=== PATIENT | female | born 1995 | race Caucasian/White ===

== ENCOUNTER 2024-07-27 19:08 | Emergency (ER) | payer SELFPAY ==
--- OUTSIDE RECORDS SUMMARY | 2024-07-27 19:11 | XMS_ITS | Continuity of Care Document ---
Author Organization [facility] Address [address] [place] [address] Phone Care Team Providers Care Senior Manufacturing Engineer Name Role Phone MD MANJULA, GREG Unavailable Unavailable Allergies, Adverse Reactions, Alerts Substance Reaction Status Criticality No Known Allergies Active No Inform ation Medications Medication Instructions Dosage Effective Dates (start - stop) Status Comments 28 mg iron-800 mcg tablet - Active Procedures Procedure Date COMPREHENSIVE DETAILED ULTRASOUND ECHO WITH M-MODE DOPPLER, ECHOCARDIOGRAPHY, 2022 COLOR FLOW VELOCITY MAPPING NEW PT, LOW VISIT Advance Directives Directive Yes / No Effective Date File Name No Information Encounters Encounter Description Practice Location Reason(s) For Visit Diagnoses Date Provider Providers Copied on Encounter NEW PT, LOW VISIT [facility], [address], [place], [place], [id number], [place] tel:[phone] [facility] Consult (chief complaint) Maternal care for (suspected) hereditary disease [facility] congenital malfor, deform and chromosomal abnormWeeks Gestation of MD MANJULA GREG. [address], [place], [place], [id number], [place]. tel:[phone] Referring Provider: THAD Cox, [address] [address], [place], [address]. tel:[phone] [facility], [address], [place], [place], [id number], [place] tel:[phone] [facility] No Information MD AYO SHERMAN III. [address] [address], [place], [place], [id number], [place]. tel:[phone] Family History Family Member Type Diagnosis Age At Onset Sister Problem Goldenhar Syndrome Mother Problem Cervical Cancer Brother Problem Autism Payers Payer name Insurance type Covered constitution party ID Authorraula shae(s) [facility] [id number] POS [id number] Social History Type Description Quantity Date Captured Comments Alcohol Use Details Unknown Caffeine Use Details Unknown Tobacco Use Status Current non-smoker Smoking Status Never smoker Non-Smoking Tobacco Use Details : No Details Available : No Details Available Sex Female Yes - Patient is currently Vital Signs Date / Time: Height Weight BMI Pulse Rate Blood Pressure Temperature Respiratory Rate Body Surface Area Head Circumference BMI percentile Pulse Ox Inhaled Ox 9:56 AM 64.00 in 69.853 kg (154.00 lbs) 26.4 3 kg/m eter (2) 92 /min 101/65 mm[Hg] 98.06 F 1.78 meter(2) Chief Complaint And Reason For Visit From encounter dated '08/31/2022 10:00'. Consult (chief complaint). Description: Today, I had the pleasure of seeing your patient, Cintia George, in our [place] office.Synopsis: She is a 27 y/o at 20 0/7 weeks gestation by LMP c/w first trimester ultrasound done at 10w5d with an CHACORTA of 01/18/2023. A consultation was requested for maternal history of VSD and sister with Golderhar syndrome. 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 Her sister has Goldenhar syndrome with malformation of the jaw and orbits. No other family members are affected. She completed NIPT which resulted as low risk. She has an ASCUS papand will plan for PP colpo. Ultrasound: Today's ultrasound showed a malone with cardiac activity, an anterior placenta, without evidence of placenta previa. There was normal amniotic fluid volume, biometry consistent with gestational age, and no structural abnormalities were identified. The ears appeared normal without extra tags or pits. The jaw and spine were also unremarkable. The echocardiogram was unremarkable. A separate report has been faxed to your office.Impression:1. Malone intrauterine at 20 0/7 weeks gestation. 2. Maternal history of ventricular septal defect. The patient had a VSD. The risk of VSD in the general population is around 1/200. The risk to this fetus higher when the mother has VSD (5-6/100). For this reason a echocardiogram was completed and was unremarkable. Small ASD, VSD, coarctation of the aorta, abnormalities of the coronary circulation and abnormalities of venous return may be missed on echo. 3. Sister with Goldenhar syndrome: this is most commonly sporadic. Findings on ultrasound can include micrognathia, malformed ears and spine. We did not note any abnormalities on today's scan. In the absence of other family members with the condition and normal ultrasound, reassurance was given. Recommendations:1. Rescan at [facility] was clinically indicated. 2. Colposcopy due to abnormal pap test. Thank you for the opportunity to participate in this patient's care and if you haveany questions concerning her please do not hesitate to contact me. History Of Present Illness Encounter Date Complaint History Of Prese nt Illness Consult Today, I had the pleasure of seeing your patient, Cintia George, in our [place] office.Synopsis: She is a 27 y/o at 20 0/7 weeks gestation by LMP c/w first trimester ultrasound done at 10w5d with an CHACORTA of 01/18/2023. A consultation was requested for maternal history of VSD and sister with Golderhar syndrome. 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 Her sister has Goldenhar syndrome with malformation of the jaw and orbits. No other family members are affected. She completed NIPT which resulted as low risk. She has an ASCUS pap and will plan for PP colpo. Ultrasound: Today's ultrasound showed a malone with cardiac activity, an anterior placenta, without evidence of placenta previa. There was normal amniotic fluid volume, biometry consistent with gestational age, and no structural abnormalities were identified. The ears appeared normal without extra tags or pits. The jaw and spine were also unremarkable. The echocardiogram was unremarkable. A separate report has been faxed to your office.Impression:1. Malone intrauterine at 20 0/7 weeks gestation. 2. Maternal history of ventricular septal defect. The patient had a VSD. The risk of VSD in the general population is around 1/200. The risk to this fetus higher when the mother has VSD (5-6/100). For this reason a echocardiogram was completed and was unremarkable. Small ASD, VSD, coarctation of the aorta, abnormalities of the coronary circulation and abnormalities of venous return may be missed on echo. 3. Sister with Goldenhar syndrome: this is most commonly sporadic. Findings on ultrasound can include micrognathia, malformed ears and spine. We did not note any abnormalities on today's scan. In the absence of other family members with the condition and normal ultrasound, reassurance was given. Recommendations:1. Rescan at [facility] was clinically indicated. 2. Colposcopy due to abnormal pap test. Thank you for the opportunity to participate in this patient's care and if you have any questions concerning her please do not hesitate to contact me. Instructions Date Instruction Additional Infor angelica No Information Assessments Type Assessment Date assessment [facility] vernell enital malfor, deform and chromosomal abnorm assessment Weeks Gestation of August assessment Maternal care for (suspected) he reditary disease in fetus
--- OUTSIDE RECORDS SUMMARY | 2024-07-27 19:11 | XMS_ITS | Continuity of Care Document ---
Author Organization [facility] Address [address] [place] [place] [address] Phone Care Team Providers Care Paid Search Marketing Analyst Name Role Phone Dylan Tafoya OD Unavailable Unavailable Allergies, Adverse Reactions, Alerts Substance Reaction Status Criticality No Known Allergies Active No Inform ation Procedures Procedure Date EYE EXAM, NEW PATIENT REFRACTION Advance Directives Directive Yes / No Effective Date File Name No Information Encounters Encounter Description Practice Location Reason(s) For Visit Diagnoses Date Provider Providers Copied on Encounter [facility] [place], [address] [facility], [place], [place], [id number], [place] tel:[phone] [facility] routine exam (chief complaint) Bilateral hypermetropiaRegula r astigmatism, bilateral Mar-0 3-202 1 Michelet Richardson. [address] [facility], [place], [address], [place]. tel:[phone] Family History Family Member Type Diagnosis Age At Onset Problem Family history of Heart dise ase Problem Family history of Diabetes m ellitus Problem Family history of hypertensi on Payers Payer name Insurance type Covered alliance party ID Authorraula tijulia(s) [facility] CI [id number] Social History Type Description Quantity Date Captured Comments Alcohol Use Details Unknown Caffeine Use Details Unknown Tobacco Use Status Current non-smoker Smoking Status Never smoker Non-Smoking Tobacco Use Details : No Details Available : No Details Available Sex Female Chief Complaint And Reason For Visit From encounter dated '06/30/2020 15:40'. routine exam (chief complaint). Description: The 25 year old female presents for evaluation of routine exam for glasses. BRODIE was 1.5 years ago, wears SV glasses for driving at night, but they are broken. Pt says that the glasses were doing well, has noticed that night time is noticeable worse now with no glasses, causing some strain. Denies ocular pain, discomfort, or headaches. Denies flashes orfloaters OU. Reason For Referral Reason For Referral No Information Plan Of Treatment Date Type Action Status Patient Education Health Information for You: MedlinePl~ completed History Of Present Illness Encounter Date Complaint History Of Prese nt Illness routine exam The 25 year old female presents for evaluation of routine exam for glasses. BRODIE was 1.5 years ago, wears SV glasses for driving at night, but they are broken. Pt says that the glasses were doing well, has noticed that night time is noticeable worse now with no glasses, causing some strain. Denies ocular pain, discomfort, or headaches. Denies flashes or floaters OU. Functional Status Date Functional Assessmen t No Information Instructions Date Instruction Additional Infor mation Impression/Plan Assessments Type Assessment Date assessment Bilateral hypermetropia 021 assessment Regular astigmatism, bilateral M Patient Care Teams Name Effective Dates (start - stop) Status Members No Information
--- OUTSIDE RECORDS SUMMARY | 2024-07-27 19:11 | XMS_ITS | Clinical Summary ---
Author Organization [facility] Address [address] [place] [address] Care Team Providers Care Candy Cutter Hand Name Role Phone Unavailable Primary Care Provider Unavailabl e Source Comments [facility],non-owned Affiliates and Associated Physician Practices is amultiple site organization consisting of ambulatory clinics and hospital sitesin [place], [place], [place] and [place]. This disclosure is being madepursuant to the Care Everywhere program and may not contain all information available regarding this patient. Last updated 18.[facility] [employer] Social History Tobacco Use Types Packs/Day Years Used Date Smoking Tobacco: Never Assessed Sex and Gender Information Value Date Recorded Sex Assigned at Not on file Gender Identity Not on file Sexual Orientation Not on file Plan of Treatment Health Maintenance Due Date Last Done Comments PAP SMEAR 1995 HIV SCREENING 2010 HEPATITIS C SCREENING 06/01/2013 DTAP/TDAP/TD VACCINES (1 - Tdap) 2014 HEPATITIS B VACCINE (1 of 3 - 19+ 3-dose series) 2014 COVID-19 VACCINE (2023-2 5 season) 2023 INFLUENZA VACCINE (#1) 2023 DEPRESSION SCREENING 04/30/2024 ZOSTER VACCINE (1 of 2) 2045 HIB VACCINE Aged Out No longer eligi ble based on patient's age to complete this topic HPV VACCINE Aged Out No longer eligi ble based on patient's age to complete this topic MENINGOCOCCAL (Group B) VACC INE SHARED DECISION-MAKING Aged Out No longer eligibl e based on patient's age to complete this topic MENINGOCOCCAL GROUPS A/C/Y/W VACCINE Aged Out No longer eligible b ased on patient's age to complete this topic PNEUMOCOCCAL VACCINE Aged Out No long er eligible based on patient's age to complete this topic
--- OUTSIDE RECORDS SUMMARY | 2024-07-27 19:15 | XMS_ITS | Continuity of Care Document ---
Author Organization [facility] Address [address] [place] [address] Phone Care Team Providers Care Technical Information Specialist Name Role Phone Dylan Tafoya OD Unavailable Unavailable Allergies, Adverse Reactions, Alerts Substance Reaction Status Criticality No Known Allergies Active No Inform ation Procedures Procedure Date EYE EXAM, NEW PATIENT REFRACTION Advance Directives Directive Yes / No Effective Date File Name No Information Encounters Encounter Description Practice Location Reason(s) For Visit Diagnoses Date Provider Providers Copied on Encounter [facility] [place], [address] [facility], [place], [place], [id number], [place] tel:[phone] [facility] Eye routine exam (chief complaint) Bilateral hypermetropiaRegula r astigmatism, bilateral Mar-0 3-202 1 Michelet Richardson. [address] [facility], [place], [address], [place]. tel:[phone] Family History Family Member Type Diagnosis Age At Onset Problem Family history of Heart dise ase Problem Family history of Diabetes m ellitus Problem Family history of hypertensi on Payers Payer name Insurance type Covered green party ID Authorraula tijulia(s) [facility] CI [id number] Social History Type Description [...]
--- OUTSIDE RECORDS SUMMARY | 2024-07-27 19:15 | XMS_ITS | Continuity of Care Document ---
Author Organization [facility] Address [address] [place] [address] Phone Care Team Providers Care Telephone Clerks Supervisor Name Role Phone MD MANJULA, GREG Unavailable Unavailable Allergies, Adverse Reactions, Alerts Substance Reaction Status Criticality No Known Allergies Active No Inform ation Medications Medication Instructions Dosage Effective Dates (start - stop) Status Comments 28 mg iron-800 mcg tablet - Active Procedures Procedure Date COLOR FLOW VELOCITY MAPPING DOPPLER, ECHOCARDIOGRAPHY, 2022 ECHO WITH M-MODE COMPREHENSIVE DETAILED ULTRASOUND NEW PT, LOW VISIT Advance Directives Directive Yes / No Effective Date File Name No Information Encounters Encounter Description Practice Location Reason(s) For Visit Diagnoses Date Provider Providers Copied on Encounter NEW PT, LOW VISIT [facility], [address], [place], [place], [id number], [place] tel:[phone] [facility] Consult (chief complaint) Maternal care for (suspected) hereditary disease [facility] congenital malfor, deform and chromosomal abnormWeeks Gestation of MD MANJULA GREG. [address], [place], [place], [id number], [place]. tel:[phone] Referring Provider: THAD Cox, [address] [address], [place], [address]. tel:[phone] [facility], [address], [place], [place], [id number], [place] tel:[phone] [facility] No Information MD AYO SHERMAN III. [address] [address], [place], [place], [address], [place]. tel:[phone] Family History Family Member Type Diagnosis Age At Onset Brother Problem Autism Mother Problem Cervical Cancer Sister Problem Goldenhar Syndrome Payers Payer name Insurance type Covered democrat ID Authorraula shae(s) [facility] [id number] POS [id number] Social History Type Description Quantity Date [...] seeing your patient, Cintia George, in our [place] office.Synopsis: She is a 27 y/o at [...] ultrasound, reassurance was given. Recommendations:1. Rescan at [facility] was clinically indicated. 2. Colposcopy due to abnormal pap test. Thank you for the opportunity to participate in this patient's care and if you haveany questions concerning her please do not hesitate to contact me. History Of Present Illness Encounter Date Complaint History Of Prese nt Illness Consult Today, I had the pleasure of seeing your patient, Cintia George, in our [place] office.Synopsis: She is a 27 y/o at [...] ultrasound, reassurance was given. Recommendations:1. Rescan at [facility] was clinically indicated. 2. Colposcopy due to abnormal pap test. Thank you for the opportunity to participate in this patient's care and if you have any questions concerning her please do not hesitate to contact me. Instructions Date Instruction Additional Infor angelica No Information Assessments Type Assessment Date assessment Maternal care for (suspected) he reditary disease in fetus assessment Weeks Gestation of August assessment Fam hist of oth vernell enital malfor, deform and chromosomal abnorm
--- NOTE | 2024-07-27 19:19 | ED_ITS ---
HPI - General Adult General Chief complaint: Upper Respiratory Infection Stated complaint: cough Time Seen by Provider: 07/27/24 19:19 Source: patient Mode of arrival: ambulatory Limitations: no limitations History of Present Illness HPI narrative: 29-year-old female patient presents to the [facility] with complaints of cough for the past 2 weeks. Patient states she did have a runny nose congestion but states most of that has resolved does complain of slight ear pain noted to the right ear but mostly continues to have a cough. Denies fevers, body aches or chills. Related Data Allergies Allergy/AdvReac Type Severity Reaction Status Date / Time No Known Allergies Allergy Unknown Verified 07/27/24 19:38 Review of Systems Review of Systems: CONSTITUTIONAL: Denies fever, chills, or sweats. EYES: Denies visual changes, redness, or discharge. ENT: Denies rhinorrhea, congestion, sore throat, positive right otalgia. CARDIOVASCULAR: Denies chest pain, palpitations, or edema. RESPIRATORY: Positive cough denies dyspnea. GASTROINTESTINAL: Denies abdominal pain, nausea, vomiting, or diarrhea. GENITOURINARY: Denies dysuria or hematuria. SKIN: Denies rash or itching. MUSCULOSKELETAL: Denies back pain, joint pain, or myalgia. NEUROLOGIC: Denies headache, numbness, or weakness. PSYCHIATRIC: Denies anxiety or depression. PMFSH Comments At the time of my signature I agree with nursing past medical history, surgical, social, and family history. There is no relevant family history pertinent to the presenting complaint. Exam Narrative: GENERAL: Well-appearing, well-nourished, and in no acute distress. HEAD: Normocephalic, atraumatic. EYES: PERRLA and EOMI. ENT: Nares clear, no rhinorrhea or epistaxis. Mucous membranes moist. posterior pharynx with no erythema, tonsillar enlargement, exudates or lesions present. Bit of fluid noted behind the right TM but no erythema or bulging noted. NECK: Supple. No lymphadenopathy CHEST: Clear to auscultation. No respiratory distress. HEART: Regular rate and rhythm. No murmur heard. Normal peripheral pulses. ABDOMEN: Soft, nontender, nondistended, normal active bowel sounds. EXTREMITIES: Normal range of motion. No edema. SKIN: Warm, dry, no rash. NEURO: No focal deficits. Alert and oriented x3. Course Course Level of Care: Express Care Visit Reevaluation(s) Reevaluation #1: re-evaluated patient notified her that her point of care swabs are negative today. Discussed with her this is most likely a virus with some leftover inflammation continuing to cause a cough. We will discharge her home with Tessalon Perles and steroid. At time of discharge patient meatus know that she is still breast-feeding notified patient that she can take the prednisone but do not recommend that she take the Tessalon Perles while breast feeding. Patient is aware of plan of care denies any other questions or concerns at this time Date: 07/27/24 Time: 20:00 Vital Signs Vital signs: Vital Signs Temperature 36.6 C 07/27/24 19:25 Pulse Rate 86 07/27/24 19:25 Respiratory Rate 18 07/27/24 19:25 Blood Pressure 115/72 07/27/24 19:25 Pulse Oximetry 98 07/27/24 19:25 Oxygen Delivery Room Air 07/27/24 19:25 Temperature 36.6 C 07/27/24 19:25 Pulse Rate 86 07/27/24 19:25 Respiratory Rate 18 07/27/24 19:25 Blood Pressure 115/72 07/27/24 19:25 Pulse Oximetry 98 07/27/24 19:25 Oxygen Delivery Room Air 07/27/24 19:25 Vital signs reviewed. Medical Decision Making MDM Narrative Medical decision making narrative: Plan care for patient is to swab her today for influenza, COVID and strep. I will reassess patient once this has resulted. Differential Diagnosis Differential Diagnosis: Differential diagnosis: Allergic rhinitis, chronic sinusitis, tonsillitis, acute sinusitis, infectious mononucleosis, seasonal influenza, pertussis, diphtheria, meningococcal disease, viral syndrome, viral bronchitis, RSV, COVID- 19 Vital Signs Vital Signs: Vital Signs Temperature 36.6 C 07/27/24 19:25 Pulse Rate 86 07/27/24 19:25 Respiratory Rate 18 07/27/24 19:25 Blood Pressure 115/72 07/27/24 19:25 Pulse Oximetry 98 07/27/24 19:25 Oxygen Delivery Room Air 07/27/24 19:25 Temperature 36.6 C 07/27/24 19:25 Pulse Rate 86 07/27/24 19:25 Respiratory Rate 18 07/27/24 19:25 Blood Pressure 115/72 07/27/24 19:25 Pulse Oximetry 98 07/27/24 19:25 Oxygen Delivery Room Air 07/27/24 19:25 Lab Data Labs: Lab Results 07/27/24 Range/Units 19:48 POC Grp A Strep Screen Negative (Negative) Critical Care Time Critical Care Time Critical Care Time: No Discharge Plan Discharge Clinical Impression: Viral URI with cough Patient Disposition: Home, Self-Care Condition: Stable Instructions: Antibiotic Form, Viral Syndrome (ED) Additional Instructions: Viral illness may last between 7-12days; antibiotic is NOT recommended at this time. Recommend antihistamine such as Benadryl at night time and Claritin/Zyrtec/Alleg ra during the day Cough syrup may cause drowsiness; avoid driving or take it at night time. Also, recommend symptomatic treatment includes: rest, fluids, and increase humidity of the air at home. Recommend Acetaminophen or nonsteroidal anti-inflammatory agents (NSAIDs) as directed in the bottle to reduce fever and/pain/headache. Avoid smoking/second-hand smoke. Limit visits to areas with large crowds. Please schedule a follow-up visit with your personal physician for further evaluation and treatment within 3-5days. Including recheck and discussion of your blood pressure. If your symptoms persist, change or worsen significantly before you can contact your personal physician then please, without delay, go to the emergency department for further evaluation. Patient Language: Sami Prescriptions: New benzonatate 200 mg capsule 200 mg PO TID PRN (Reason: cough) 10 Days Qty: 30 0RF prednisone 20 mg tablet 20 mg PO DAILY 5 Days Qty: 5 0RF Follow-up/Referrals: UNKNOWN,DOCTOR [Primary Care Provider] - Time of Disposition: 19:54
[2024-07-27 19:25] VITALS: BP 115/72; PULSE 86; RESP 18; TEMP 36.6; O2SAT 98
[2024-07-27 19:50] LABS: EDSTREPNEGPOS1 Negative (Negative)
[2024-07-27 19:56] LABS: EDCOVIDSCREEN Negative (Negative); EDINFLUASCREEN Negative (Negative); EDINFLUBSCREEN Negative (Negative)
== END 2024-07-27 20:02 | disposition home or self-care (01) ==
PROVIDERS: Emergency Provider Nurse Practitioner Family
DX: J06.9 Acute upper respiratory infection, unspecified (principal); R05.9 Cough, unspecified; Z20.822 Contact with and (suspected) exposure to COVID-19
CPT/HCPCS: 87081; 87426; 87804; 87880; 99213; G0463